=== PATIENT | male | born 1960 | race African-American/Black ===

== ENCOUNTER 2016-07-21 19:49 | Emergency (ER) | payer SELFPAY ==
--- NOTE | 2016-07-21 20:23 | ER Document Report ---
ED Medical Screen (RME) - General Stated Complaint: POSSIBLE CONSTIPATION Mode of Arrival: Ambulatory Information source: Patient Notes: Patient complains of constipation. Last bowel movement was 2 days ago. Patient complains of a tender swollen area to the rectal area. hx: None I have greeted and performed a rapid initial assessment of this patient. A comprehensive ED assessment and evaluation of the patient, analysis of test results and completion of the medical decision making process will be conducted by additional ED providers. TRAVEL OUTSIDE OF THE [place] IN LAST 30 DAYS: No Physical Exam - General General appearance: Appears well, Alert In distress: None
--- NOTE | 2016-07-22 01:08 | ER Document Report ---
ED General - General Chief Complaint: Constipation Stated Complaint: POSSIBLE CONSTIPATION Mode of Arrival: Ambulatory Notes: Patient is a 56-year-old male without past history who presents with 9 months of intermittent constipation and concerns of a possible external hemorrhoid. States that he pushed down heavily today trying to have a bowel movement and was unable to do so. States afterwards he noticed a lump on his anus and was concerned about what this could be which prompted him to come to the emergency department. He tried applying a warm compress without improvement of the swelling. He denies any abdominal pain, vomiting and has continued to pass flatus the difficulty. States when he has bowel movements occurs once every 3- 4 days and that is typically very difficult to pass stool. He has not tried anything to improve his symptoms. Nothing worsens the symptoms. He has not followed up with primary care physician. He has no history of a hernia or prior abdominal surgeries. TRAVEL OUTSIDE OF THE [place] IN LAST 30 DAYS: No - Related Data Allergies/Adverse Reactions: No Known Allergies Allergy (Unverified 07/21/16 20:24) Past Medical History - General Information source: Patient - Social History Smoking Status: Never Smoker Frequency of alcohol use: None Drug Abuse: None Family History: Reviewed & Not Pertinent Patient has suicidal ideation: No Patient has homicidal ideation: No Renal/ Medical History: Denies: Hx Peritoneal Dialysis - Immunizations Hx Diphtheria, Pertussis, Tetanus Vaccination: Yes Review of Systems - Review of Systems Notes: Constitutional: Negative for fever. HENT: Negative for sore throat. Eyes: Negative for visual changes. Cardiovascular: Negative for chest pain. Respiratory: Negative for shortness of breath. Gastrointestinal: Negative for abdominal pain, vomiting or diarrhea. Positive for constipation Genitourinary: Negative for dysuria. Musculoskeletal: Negative for back pain. Skin: Negative for rash. Neurological: Negative for headaches, weakness or numbness. 10 point ROS negative except as marked above and in HPI. Physical Exam - Vital signs Vitals: Temp Pulse Resp BP Pulse Ox 98.1 F 79 16 129/80 H 95 07/21/16 20:20 07/21/16 20:20 07/21/16 20:20 07/21/16 20:20 07/21/16 20:20 Interpretation: Normal Notes: PHYSICAL EXAMINATION: GENERAL: Well-appearing, well-nourished and in no acute distress. HEAD: Atraumatic, normocephalic. EYES: Pupils equal round and reactive to light, extraocular movements intact, sclera anicteric, conjunctiva are normal. ENT: nares patent, oropharynx clear without exudates. Moist mucous membranes. NECK: Normal range of motion, supple without lymphadenopathy LUNGS: Breath sounds clear to auscultation bilaterally and equal. No wheezes rales or rhonchi. HEART: Regular rate and rhythm without murmurs ABDOMEN: Soft, nontender, normoactive bowel sounds. No guarding, no rebound. No masses appreciated. Rectal: There is a nonthrombosed prolapsed hemorrhoid EXTREMITIES: Normal range of motion, no pitting or edema. No cyanosis. NEUROLOGICAL: No focal neurological deficits. Moves all extremities spontaneously and on command. PSYCH: Normal mood, normal affect. SKIN: Warm, Dry, normal turgor, no rashes or lesions noted. Course - Re-evaluation Re-evalutation: 07/22/16 01:06 Patient presents with constipation. He has had the symptoms for 9 months. He came to the emergency department tonight due to concern of a hemorrhoid which is present on exam He states that he has not had a bowel movement in several days despite [id number] medications. He has not had any vomiting, abdominal pain, and continues to pass flatus. I do not suspect an acute bowel obstruction based on his clinical history, exam, and no evidence of this on a plain view x-ray of the abdomen. Likewise, based on history and exam as well as vitals I do not suspect an acute appendicitis, pathology, pyelonephritis, or any other life-threatening pathology. He has been given an enema here in the emergency department. I have recommended home laxative therapy. At this time will discharge with return precautions and follow-up recommendations. Verbal discharge instructions given a the bedside and opportunity for questions given. Medication warnings reviewed. Patient is in agreement with this plan and has verbalized understanding of return precautions and the need for primary care follow-up in the next 24-72 hours. - Vital Signs Vital signs: Temp Pulse Resp BP Pulse Ox 98.4 F 76 18 140/92 H 98 07/22/16 01:51 07/22/16 01:51 07/22/16 01:51 07/22/16 01:51 07/22/16 01:51 - Diagnostic Test Radiology reviewed: Image reviewed, Reports reviewed Radiology results interpreted by me: 07/22/16 04:24 KUB: Sigmoid stool burden present Discharge - Discharge Clinical Impression: Constipation Qualifiers: Constipation type: unspecified constipation type Qualified Code(s): K59.00 - Constipation, unspecified Hemorrhoid Qualifiers: Hemorrhoid type: unspecified Qualified Code(s): K64.9 - Unspecified hemorrhoids Condition: Good Disposition: HOME, SELF-CARE Additional Instructions: For your constipation: You should take 8 caps of MiraLAX and placed in 1 liter of Gatorade. Drink one half of the solution and wait 4 hours. If you do not have a bowel movement take the remaining half of the solution. Return to the ED if you begin having abdominal pain, you develop bloody vomiting , bloody diarrhea, you are unable to tolerate fluids due to vomiting, fever greater than 101, or other symptoms that concern you.
[2016-07-22 01:53] VITALS: BP 140/92
[2016-07-22] MEDS ORDERED: NA PHOS,M-B/NA PHOS,DI-BA (ADULT) 133 ML ENEMA PR SCH (02:00)
== END 2016-07-22 01:55 | disposition home or self-care (01) ==
LOC: ER 19:49
DX: K59.00 Constipation, unspecified (principal); K64.9 Unspecified hemorrhoids
CPT/HCPCS: 74000; 99283